=== PATIENT | female | born 1970 | race Caucasian/White ===

== ENCOUNTER 2020-04-06 11:37 | Emergency (ER) | payer OTHER, SELFPAY ==
[2020-04-06 11:39] VITALS: BP 161/105; PULSE 67; RESP 24; TEMP 36.7; O2SAT 95; BMI 37.8
--- NOTE | 2020-04-06 11:51 | ECG_ITS ---
APPROVED REPORT Exam: Resting ECG HR:66 bpm ECG Measurements Heart Rate 66 AXES NE 138 P 36 QRSd 84 QRS 0 QT 410 T -70 QTc 429 Conclusion Normal sinus rhythm Left ventricular hypertrophy with repolarization abnormality Abnormal ECG Electronically signed by : Bartolo Zhao, 04/06/2020 22:04:15
--- NOTE | 2020-04-06 12:00 | HMH.EDGENADL ---
ED Disposition Clinical Impression: Viral illness Disposition: Home, Self-Care Condition on Discharge: Good Referrals: Konrad Jo [Primary Care Provider] - 3 days - Critical Care Critical Care Time: No Attestation: On , the high probability of a clinically significant, sudden or life threatening deterioration of the following system(s) required my full and direct attention, intervention and personal management. The time I documented below is in addition to time spent performing reported procedures but includes the following listed in this critical care notation. Medical Decision Making - Jorge Luis Inquiry Pt receiving controlled substance: No Vital Signs: 04/06/20 11:39 04/06/20 12:44 04/06/20 14:03 Temperature 98.0 F Temperature Source Oral Pulse Rate [Right Radial] 67 63 56 L Respiratory Rate 24 16 Blood Pressure [Right Arm] 161/105 H 151/93 H 129/70 Blood Pressure Mean [Right Arm] 123 112 89 Blood Pressure Source [Right Arm] Automatic Cuff Automatic Cuff Automatic Cuff Blood Pressure Position [Right Arm] Sitting Sitting Sitting 02 Sat by Pulse Oximetry 95 96 96 Oxygen Delivery Method Room Air Room Air Room Air 04/06/20 14:35 Temperature Temperature Source Pulse Rate [Right Radial] 60 Respiratory Rate 18 Blood Pressure [Right Arm] 143/76 H Blood Pressure Mean [Right Arm] 98 Blood Pressure Source [Right Arm] Blood Pressure Position [Right Arm] 02 Sat by Pulse Oximetry 94 L Oxygen Delivery Method - Lab Data Lab Results 04/06/20 11:54: WBC 6.2, RBC 4.79, Hgb 13.7, Hct 42.1, MCV 88.0, MCH 28.7, MCHC 32.6, RDW 14.0, Plt Count 281, MPV 7.5, Neut % (Auto) 62.0, Lymph % (Auto) 30.5, Rankin % (Auto) 6.4, Eos % (Auto) 0.5, Baso % (Auto) 0.7, Neut # (Auto) 3.8, Lymph # (Auto) 1.9, Rankin # (Auto) 0.4, Eos # (Auto) 0.0, Baso # (Auto) 0.0 04/06/20 11:54: Sodium 139, Potassium 3.7, Chloride 107, Carbon Dioxide 23, Anion Gap 12.7, BUN 11, Creatinine 0.70, Estimated Creat Clear 171, Estimated GFR 89, Est GFR ( Amer) 107, Glucose 131 H, Calcium 9.3, Total Bilirubin 0.4, AST 55 H, ALT 58, Alkaline Phosphatase 95, Total Protein 7.4, Albumin 4.1, Globulin 3.3 H, Albumin/Globulin Ratio 1.2 04/06/20 11:54: Lactate 1.5 Result diagrams: 04/06/20 11:54 04/06/20 11:54 Orders (Tests/Meds): ED MEDICATIONS Generic Name Dose Route Start Last Admin Trade Name Freq PRN Reason Stop Dose Admin Sodium Chloride 1,000 mls @ 250 mls/hr 04/06/20 12:15 04/06/20 12:15 Sod Chlor 0.9% 1000ml Bag IV 05/06/20 12:14 250 mls/hr .Q4H VAL Administration ORDERS Category Date Time Status CXR --portable [XR chest portable] Stat Exams 04/06/20 12:09 Taken Covid-19 Nasal PCR ([facility]) Routine Lab 04/06/20 12:18 Received Trop I [Troponin I] Stat Lab 04/06/20 14:29 Ordered Urinalysis and Microscopic Stat Lab 04/06/20 12:06 Ordered Blood Culture Stat Micro 04/06/20 11:54 Received - Radiology Data #1 Image(s): Chest Image Reviewed: Yes I reviewed the patient's radiology image Preliminary Findings: Normal/NAD Medical Decision Narrative: 50yo F recently tested positive for Covid presents the emergency department secondary to feeling worse. Patient appears acutely ill. Her initial blood pressure is elevated but without intervention is trended to appropriate levels. Her physical exam is otherwise unremarkable. She is in no acute distress. Her O2 sat is 94 to 100% on room air. CBC, CMP are unremarkable. Troponin has been added on. Chest x-ray unremarkable. Discussed monoclonal antibody infusion if coronavirus test is positive. Discussed 81 mg p.o. aspirin daily with the patient as well. General Adult HPI - General Stated complaint: was covid positive, cough, SOB Time Seen by Provider: 04/06/20 12:00 Source of Information: Patient, Spouse - History of Present Illness HPI narrative: 50yo F with past medical history significant hypothyroidism presents the emergency department seconda
--- NOTE | 2020-04-06 12:09 | XR_ITS ---
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 Patchy peripheral infiltrate is present in the left lower lobe and possibly in the right lower lung zone medially No acute bony abnormalities. IMPRESSION: Patchy left lower lobe pneumonia with atelectasis or infiltrate in the right lung base medially Dictated by: Neal Khalil MD 04/06/2020 14:33 Neal Khalil MD in [place] 04/06/2020 14:33
[2020-04-06 12:24] LABS: Basophils % 0.7 % (0.1-2.0); Eosinophils % 0.5 % (0.1-12.0); Hematocrit 42.1 % (37.0-47.0); Hemoglobin 13.7 g/dL (12.2-16.2); Lymphocytes # 1.9 K/mm3 (0.7-4.5); Lymphocytes % 30.5 % (10-50); Mean Corpuscular HGB Conc 32.6 g/dL (31.8-35.4); Mean Corpuscular Hemoglobin 28.7 pg (27.0-31.2); Mean Platelet Volume 7.5 fl (7.4-10.4); Monocytes # 0.4 K/mm3 (0.1-1.0); Monocytes % 6.4 % (1.7-9.3); Neutrophils # 3.8 K/mm3 (1.8-7.8); Platelet Count 281 K/mm3 (142-424); Red Blood Count 4.79 M/mm3 (4.20-5.40); White Blood Count 6.2 K/mm3 (4.8-10.8)
[2020-04-06 12:31] LABS: Alanine Aminotransferase 58 U/L (12-78); Albumin Level 4.1 g/dl (3.5-5.0); Albumin/Globulin Ratio 1.2 (1.1-1.8); Alkaline Phosphatase 95 U/L (38-126); Anion Gap 12.7 mEq/L (5-15); Aspartate Amino Transferase 55 U/L (14-36); Bilirubin,Total 0.4 mg/dl (0.2-1.3); Blood Urea Nitrogen 11 mg/dl (7-17); Calcium 9.3 mg/dl (8.4-10.2); Carbon Dioxide 23 mmol/L (22.0-30.0); Chloride 107 mmol/L (98-107); Creatinine Clearance Estimated 171 mL/min (50-200); Estimated Glomerular Filt Rate 89 ml/min (>60); GFR (African American) 107 ML/MIN (>60); Globulin 3.3 g/dL (1.3-3.2); Glucose 131 mg/dl (74-100); Potassium 3.7 mmoL/L (3.5-5.1); Sodium 139 mmol/L (136-145); Total Protein,Serum 7.4 g/dl (6.3-8.2)
[2020-04-06 12:44] VITALS: BP 151/93; PULSE 63; O2SAT 96
[2020-04-06 13:46] LABS: Lactic Acid 1.5 mmol/L (0.7-2.1)
[2020-04-06 14:03] VITALS: BP 129/70; PULSE 56; RESP 16; O2SAT 96
--- NOTE | 2020-04-06 14:24 | PC.NURSE ---
per lab pt covid swab has approx 113 minutes left running
[2020-04-06 14:35] VITALS: BP 143/76; PULSE 60; RESP 18; O2SAT 94
--- NOTE | 2020-04-06 14:50 | CT_ITS ---
PROCEDURE: CT ANGIO CHEST CLINCIAL INDICATION: covid, sob COMPARISON: CR XR CHEST PORTABLE from 04/06/2020 TECHNIQUE: IV Contrast: 70ML Isovue 370 Axial images obtained with sagittal and coronal reformats. All CT scans at the facility use one or more dose reduction, viz: automated exposure control, ma/kV adjustment per patient size (including targeted exams where dose is matched to indication, i.e. head), or iterative reconstruction technique. FINDINGS: HEART AND MEDIASTINAL STRUCTURES: No evidence of pulmonary embolus, aortic aneurysm, or aortic dissection. LUNGS AND PLEURAL SPACES: There are multifocal small areas of infiltrate both central and peripheral some of which demonstrate ground-glass infiltrate and some more dense areas of consolidation. No effusions. There are some atelectatic changes in the lung bases. The small parenchymal opacities could very well obscure underlying pulmonary nodules. BONY STRUCTURES: No acute bony abnormalities apparent. UPPER ABDOMEN: There is a small hiatal hernia. ADDITIONAL FINDINGS: No other significant abnormalities. IMPRESSION: 1. No evidence of pulmonary embolus. 2. Multifocal areas of infiltrate are present representing commonly reported imaging features of Covid19 pneumonia . Other processes such is influenza pneumonia and organizing pneumonia, drug toxicity, connective tissue disease, and pulmonary hemorrhage can cause a similar imaging pattern. Dictated by: Neal Khalil MD 04/06/2020 15:56 Neal Khalil MD in [place] 04/06/2020 15:56
[2020-04-06 15:02] LABS: Troponin I < 0.01 ng/ml (0.00-0.034)
--- NOTE | 2020-04-06 15:25 | PC.NURSE ---
pt to CT
[2020-04-06 16:00] VITALS: BP 133/68; PULSE 60; O2SAT 94
[2020-04-06 16:59] VITALS: BP 144/79; PULSE 70; RESP 22; TEMP 36.7; O2SAT 96
== END 2020-04-06 16:59 | disposition home or self-care (01) ==
PROVIDERS: Emergency Provider Family Medicine; PCP Internal Medicine
DX: U07.1 COVID-19 (principal); J12.82 Pneumonia due to coronavirus disease 2019; E03.9 Hypothyroidism, unspecified; Z87.891 Personal history of nicotine dependence
CPT/HCPCS: 71045; 71275; 80053; 83605; 84484; 85025; 87040; 93005; 96365; 99284; Q9967; U0003

== ENCOUNTER → 2020-04-07 10:56 | Outpatient (CLI) | payer OTHER, SELFPAY ==
[2020-04-07] VITALS (7 sets, daily range): BP systolic 134–146; BP diastolic 80–89; PULSE 55–63; RESP 8–18; TEMP 36.6–36.7; O2SAT 96–98
== END ==
PROVIDERS: PCP Internal Medicine; Visit Provider Family Medicine
DX: U07.1 COVID-19 (principal)
CPT/HCPCS: 96365

== ENCOUNTER → 2021-03-23 08:02 | Outpatient (CLI) | payer OTHER, SELFPAY ==
--- NOTE | 2021-03-23 08:11 | MM_ITS ---
PROCEDURE INFORMATION: Exam: MG Bilateral Screening 3D Mammography Exam date and time: 03/23/2021 8:11 AM Age: 51 years old Clinical indication: Encounter for screening mammogram for malignant neoplasm of breast . Family history of breast carcinoma. TECHNIQUE: Imaging protocol: Bilateral Screening tomosynthesis and 2D mammography including computer-aided detection (CAD) when performed. COMPARISON: No relevant prior studies available. FINDINGS: MAMMOGRAPHY: Breast composition: There are scattered areas of fibroglandular density. Mass: No suspicious masses. Architectural distortion: No suspicious distortion. Calcifications: No suspicious calcifications. Asymmetric density: None. Skin thickening: None. Axillary adenopathy: None. IMPRESSION: No mammographic evidence of malignancy. Annual screening is recommended unless otherwise clinically indicated. Of note, patient reports having prior mammograms. Every attempt should be made to obtain prior mammograms for comparison. If/when these prior exams become available for comparison, an addendum will be made, if necessary. ASSESSMENT: BI-RADS Category 1: Negative
== END ==
PROVIDERS: PCP Internal Medicine; Visit Provider Internal Medicine
DX: Z12.31 Encounter for screening mammogram for malignant neoplasm of breast (principal)
CPT/HCPCS: 77063; 77067

== ENCOUNTER 2024-10-02 08:19 | Outpatient (CLI) | payer BC, SELFPAY ==
--- OUTSIDE RECORDS SUMMARY | 2024-08-13 08:45 | XMS_ITS | Encounter Summary ---
Author Organization Healthcare Address [address] [place] [address] Care Team Providers Care Pack Room Operator Name Role Phone Stanley Ugalde DDS Unavailable [phone] Krista Moreira Unavailable Unavail able Konrad Jo MD Primary Care Provider [phone] Reason for Referral * Other Medical (Routine) - Pending Review Specialty Diagnoses / Procedures Referred By Daniel t Referred To Contact Diagnoses Tricompartment osteoarthritis of left knee Procedures Injection - Large Joint: L knee Esther Dalton MD [address] [place] [address] Phone: tel: fax: Referral ID Status Reason Start Date Expiration Date V isits Requested Visits Authorized [id number] Pending Review 08/13/2024 02/12/2026 1 1 Reason for Visit * Reason Comments Pain Injections Encounter Details Date Type Department Care Team (Latest Contact Info) Description 08/13/2024 8:45 AM EDT Procedure Visit [facility] [address] [place] [address], [address] [place] [address] Esther Dalton MD [address] [place] [address] Tricompartment osteoarthritis of left knee (Primary Dx); Knee effusion, left; Class 3 severe obesity due to excess calories with serious comorbidity and body mass index (BMI) of 40.0 to 44.9 in adult Social History Tobacco Use Types Packs/Day Years Used Date Smoking Tobacco: Former Cigarettes 1.5 10 Smokeless Tobacco: Never Tobacco Cessation:Counseling Given: Not Answered Alcohol Use Standard Drinks/Week Comments Not Currently 0 (1 standard drink = 0.6 oz pur e alcohol) PHQ-2 Answer Date Recorded Patient Health Questionnaire-2 Score 0 11/29/2023 Comments Unknown Sex and Gender Information Value Date Recorded Sex Assigned at Not on file Legal Sex Female 7:51 PM EDT Gender Identity Not on file Sexual Orientation Not on file documented as of this encounter Last Filed Vital Signs Vital Sign Reading Time Taken Comments Blood Pressure 131/79 08/13/2024 9:03 AM EDT Pulse - - Temperature - - Respiratory Rate - - Oxygen Saturation - - Inhaled Oxygen Concentration - - Weight 113 kg (249 lb) 08/13/2024 9:03 AM EDT Height 167.6 cm (5' 6 ) 08/13/2024 9:03 AM EDT Body Mass Index 40.19 08/13/2024 9:03 AM EDT documented in this encounter Miscellaneous Notes * Progress Notes - Esther Dalton MD - 08/13/2024 8:45 AM EDTAssociated Order(s): Injection - Large Joint: L knee Post-Procedure Diagnose(s): Tricompartment osteoarthritis of left knee Clinic Note Encounter Date: 08/13/2024 Subjective: Chief Complaint: L knee pain History of Present Illness: 54 year old female with worsening L knee pain and swelling. She got great relief from her last steroid injection which was performed in November and really did well up until the last several weeks andsignificantly worsened with popping and catching since then. She has last weekend. She has also developed swelling. She denies any specific injury. She feels like getting started on antidepressant also significantly helped her pain as she was able to exercise more. Problem List has Acute non-recurrent maxillary sinusitis and Class III obesity with body mass index (BMI) of 40.0 or higher ([facility]) on their problem list. Medications Patient's Medications New Prescriptions No medications on file Previous Medications CITALOPRAM (CELEXA) 40 MG TABLET Take 1 tablet (40 mg) by mouth 1 (one) time each day. DESVENLAFAXINE (PRISTIQ) 50 MG 24 HR TABLET take 1 tablet by mouth every morning as directed DICLOFENAC (VOLTAREN) 1 % TOPICAL GEL Place on the skin 2 (two) times a day. Apply as directed to left knee DICLOFENAC SODIUM (VOLTAREN XR) 100 MG 24 HR TABLET Take 1 tablet (100 mg) by mouth 1 (one) time each day. LEVOTHYROXINE (SYNTHROID, LEVOXYL) 125 MCG TABLET Take 1 tablet (125 mcg) by mouth 1 (one) time each day. LISINOPRIL 5 MG TABLET Take 1 tablet by mouth daily. METHYLPREDNISOLONE (MEDROL DOSPAK) 4 MG TABLETS Take as directed. OMEPRAZOLE (PRILOSEC) [address] CAPSULE Take 1 capsule (40 mg) by mouth 1 (one) time each day. TRAZODONE (DESYREL) 150 MG TABLET Take 1 tablet (150 mg) by mouth every night. Modified Medications No medications on file Discontinued Medications No medications on file Surgical History Surgical History[1] Allergies Allergies[2] Objective: Visit Vitals BP 131/79 Ht 1.676 m (5' 6 ) Wt 113 kg (249 lb) BMI 40.19 kg/m?? Smoking Status Former BSA 2.29 m?? GEN: Alert, cooperative, in no acute distress MSK: L knee: small effusion. No erythema, ecchymosis or warmth. Imaging: I personally reviewed previous XR from 10/21/23 which shows moderate arthritis. Assessment and Plan: Diagnosis Plan 1. Tricompartment osteoarthritis of left knee 2. Knee effusion, left 3. Class 3 severe obesity due to excess calories with serious comorbidity and body mass index (BMI)of 40.0 to 44.9 in adult Orders Placed This Encounter Injection - Large Joint Follow up in about 6 weeks (around 09/24/2024). 54-year-old female 54-year-old female presents with flare of left knee primary osteoarthritis with knee effusion complicated by obesity with BMI 40. She ultimately elected to proceed with USG L knee CSI today. Will schedule for 6-8 weeks for HSIEH injection and if doing well with this steroid she willpush it back further. Continue exercising and working on weight loss to help with symptom management and be surgical candidate for TKA in future with BMI <40. Continue with swimming and aqua exercises but stay out of pool for next 48 hours to reduce risk of infection. 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 See procedure note. Post-injection care instructions were provided. Patient ID: Elizabeth Ely is a 54 y.o. female. Encounter Diagnoses Name Primary? Tricompartment osteoarthritis of left knee Yes Knee effusion, left Class 3 severe obesity due to excess calories with serious comorbidity and body mass index (BMI) of40.0 to 44.9 in adult Injection - Large Joint: L knee Indications: pain Details: 25 G needle, ultrasound-guided superolateral approach Medications: 50 mg lidocaine 1 %; 2 mL ropivacaine 5 MG/ML; 40 mg Kenalog-40 40 MG/ML Aspirate: sent for lab analysis Outcome: tolerated well, no immediate complications US Guided Procedure Note: Indication: Knee pain Procedure: Sonographically guided left knee corticosteroid injection Informed Consent: Following denial of allergy and review of potential side effects and complications including, but not limited to, infection, allergic reaction, local tissue breakdown, systemic effects of corticosteroids, elevation of blood glucose, injury to soft tissue and/or nerves and seizure,the patient indicated understanding and agreed to proceed. Procedural pause conducted to verify: correct patient identity, procedure to be performed and, as applicable, correct side and site, correct patient position, availability of any special equipment orother special requirements. Justification for use of ultrasound guidance: The use of direct sonographic visualization of the needle (rather than a non-guided injection) was required to ensure accurate injection placement for diagnostic specificity, to maximize clinical efficacy and for safety purposes to minimize risk of bleeding or injury to nearby neurovascular structures. Technique: The procedure was carried out under sterile technique utilizing a sterile ultrasound transducer cover and sterile ultrasound gel. Pre-procedural scanning was performed to determine optimalneedle approach for the procedure. The patient was prepped and draped in the usual sterile fashion. Patient position: supine Approach: in plane Local anesthesia: 5 mL 1% Lidocaine Aspiration/Injection: Live sonographic guidance with a 12-5 mHz linear array transducer was used throughout the procedure. A 25g 2 inch needle was used for local anesthesia and was guided into the supra-patellar recess. After reconfirmation of needle placement 2cc 0.5% Ropivicaine and 1cc 40mg/mL Kenalog was guided into the supra-patellar recess. Post-Procedure Instructions: The patient tolerated the procedure well without complication and was discharged in good condition after a short observation period. The patient was instructed to avoid submerging the procedure site in water for 48-72 hours. The patient was instructed to contact me withany questions pertaining to the procedure and to inform me of the results of the procedure in approximately 7-10 days, as needed. Questions regarding general management should be directed to the patient's referring provider and the patient should keep all previously scheduled follow up appointments. Multiple marino images were saved. Impression: Successful sonographically-guided left knee injection. Procedure, treatment alternatives, risks and benefits explained, specific risks discussed. Consent was given by the patient. Immediately prior to procedure a time out was called to verify the correctpatient, procedure, equipment, network support and site/side marked as required. Patient was prepped and draped in the usual sterile fashion. Electronically Signed by: Esther Dalton MD - 08/13/2024 - 10:10 AM [1] Past Surgical History: Procedure Laterality Date HYSTERECTOMY ROOT CANAL WISDOM TOOTH EXTRACTION [2] No Known Allergies documented in this encounter Plan of Treatment Not on file documented as of this encounter Procedures Procedure Name Priority Date/Time Associated Diagnosis Comments WA ARTHROCENTESIS ASPIR&/INJ MAJOR JT/BURSA W/US Routine 08/13/2024 8:45 AM EDT Tricompartment osteoarthritis of left knee documented in this encounter Results * WA ARTHROCENTESIS ASPIR&/INJ MAJOR JT/BURSA W/US (08/13/2024 8:45 AM EDT) Narrative Esther Dalton MD - 08/13/2024 8:45 AM EDT Esther Dalton MD 08/13/2024 10:13 AM Injection - Large Joint: L knee Indications: pain Details: 25 G needle, ultrasound-guided superolateral approach Medications: 50 mg lidocaine 1 %; 2 mL ropivacaine 5 MG/ML; 40 mg Kenalog-40 40 MG/ML Aspirate: sent for lab analysis Outcome: tolerated well, no immediate complications US Guided Procedure Note: Indication: Knee pain Procedure: Sonographically guided left knee corticosteroid injection Informed Consent: Following denial of allergy and review of potential side effects and complications including, but not limited to, infection, allergic reaction, local tissue breakdown, systemic effects of corticosteroids, elevation of blood glucose, injury to soft tissue and/or nerves and seizure, the patient indicated understanding and agreed to proceed. Procedural pause conducted to verify: correct patient identity, procedure to be performed and, as applicable, correct side and site, correct patient position, availability of any special equipment or other special requirements. Justification for use of ultrasound guidance: The use of direct sonographic visualization of the needle (rather than a non-guided injection) was required to ensure accurate injection placement for diagnostic specificity, to maximize clinical efficacy and for safety purposes to minimize risk of bleeding or injury to nearby neurovascular structures. Technique: The procedure was carried out under sterile technique utilizing a sterile ultrasound transducer cover and sterile ultrasound gel. Pre-procedural scanning was performed to determine optimal needle approach for the procedure. The patient was prepped and draped in the usual sterile fashion. Patient position: supine Approach: in plane Local anesthesia: 5 mL 1% Lidocaine Aspiration/Injection: Live sonographic guidance with a 12-5 mHz linear array transducer was used throughout the procedure. A 25g 2 inch needle was used for local anesthesia and was guided into the supra-patellar recess. After reconfirmation of needle placement 2cc 0.5% Ropivicaine and 1cc 40mg/mL Kenalog was guided into the supra-patellar recess. Post-Procedure Instructions: The patient tolerated the procedure well without complication and was discharged in good condition after a short observation period. The patient was instructed to avoid submerging the procedure site in water for 48-72 hours. The patient was instructed to contact me with any questions pertaining to the procedure and to inform me of the results of the procedure in approximately 7-10 days, as needed. Questions regarding general management should be directed to the patient's referring provider and the patient should keep all previously scheduled follow up appointments. Multiple marino images were saved. Impression: Successful sonographically-guided left knee injection. Procedure, treatment alternatives, risks and benefits explained, specific risks discussed. Consent was given by the patient. Immediately prior to procedure a time out was called to verify the correct patient, procedure, equipment, network support and site/side marked as required. Patient was prepped and draped in the usual sterile fashion. us sEther Dalton MD IN CLINIC/BEDSIDE ORDERABLE S Final Result documented in this encounter Visit Diagnoses Diagnosis Tricompartment osteoarthritis of left knee- Primary Knee effusion, left Effusion of lower leg joint Class 3 severe obesity due to excess calories with serious comorbidity and body mass index (BMI) of 40.0 to 44.9 in adult documented in this encounter Administered Medications Inactive Administered Medications - up to 3 most recent administrations Medication Order MAR Action Action Date Dose Rate Site lidocaine (Xylocaine) 1 % injection 50 mg 50 mg, Intra-articular, Once PRN Procedure, 1 dose, Starting on Sun08/13/24 at 0845, Until Sun08/13/24 at 0845, RoutineIndications:Tricompartment osteoarthritis of left knee Given 08/13/2024 8:45 AM EDT 50 mg ropivacaine (Naropin) injection 2 mL 2 mL, Injection, Once PRN Procedure, 1 dose, Starting on Sun08/13/24 at 0845, Until Sun08/13/24 at 0845, RoutineIndications:Tricompartment osteoarthritis of left knee Given 08/13/2024 8:45 AM EDT 2 mL triamcinolone acetonide (Kenalog-40) injection 40 mg 40 mg, Intra-articular, Once PRN Procedure, 1 dose, Starting on Sun08/13/24 at 0845, Until Sun08/13/24 at 0845, RoutineIndications:Tricompartment osteoarthritis of left knee Given 08/13/2024 8:45 AM EDT 40 mg documented in this encounter Additional Health Concerns Assessment Noted Time A fall risk assessment has been complete d for the patient 08/13/2024 9:03 AM EDT A Body Mass Index follow-up plan has been documented for the patient 08/13/2024 10:13 AM EDT documented as of this encounter Care Teams Pack Room Operator Relationship Specialty Start Date End Date Konrad Jo MD [address] [place] [address] PCP - General 10/21/23 Stanley Ugalde, ROSEMARIE [address] [facility] [address] [place] [address] Dentist Dentist 06/14/22 Krista Moreira [facility] 06/14/22 documented as of this encounter
--- OUTSIDE RECORDS SUMMARY | 2024-10-01 08:30 | XMS_ITS | Encounter Summary ---
Author Organization Healthcare Address [address] [place] [address] Care Team Providers Care Sed Special Education Teacher Name Role Phone Stanley Ugalde DDS Unavailable [phone] Krista Moreira Unavailable Unavail Konrad Camacho MD Primary Care Provider [phone]- [phone] Reason for Visit * Reason Comments Pain Injections * Other Medical (Routine) - Closed Specialty Diagnoses / Procedures Referred By Contac t Referred To Contact Sports Medicine Diagnoses Tricompartment osteoarthritis of left knee Procedures Large Joint Injection Esther Dalton MD [address] [place] [address] Phone: tel: fax: Referral ID Status Reason Start Date Expiration Date Visits Re quested Visits Authorized [id number] Closed 08/13/2024 02/12/2026 1 1 Encounter Details Date Type Department Care Team (Latest Contact Info) Description 10/01/2024 8:30 AM EDT Procedure Visit [facility] Orthopaedic Surgery & Sports Medicine [address] [facility], [address] [place] [address] Esther Dalton MD [address] [facility] [address] [place] [address] Tricompartment osteoarthritis of left knee Social History Tobacco Use Types Packs/Day Years [...] Sign Reading Time Taken Comments Blood Pressure 151/80 10/01/2024 8:27 AM EDT Pulse - - Temperature - - Respiratory Rate - - Oxygen Saturation - - Inhaled Oxygen Concentration - - Weight 116 kg (256 lb) 10/01/2024 8:27 AM EDT Height 167.6 cm (5' 6 ) 10/01/2024 8:27 AM EDT Body Mass Index 41.32 10/01/2024 8:27 AM EDT documented in this encounter Plan of Treatment Not on file documented as of this encounter Visit Diagnoses Diagnosis Tricompartment osteoarthritis of left knee documented in this encounter Additional Health Concerns Assessment Noted Time A fall risk assessment has been complete d for the patient 10/01/2024 8:31 AM EDT A Body Mass Index follow-up plan has been documented for the patient 08/13/2024 10:13 AM EDT documented as of this encounter Care Teams Sed Special Education Teacher Relationship Specialty Start Date End Date Konrad Jo MD [address] [place] [address] PCP - General 10/21/23 Stanley Ugalde DDS [id number] [place] [address] Dentist Dentist 06/14/22 Krista Moreira Dentisamber 06/14/22 documented as of this encounter
--- NOTE | 2024-10-02 08:23 | XR_ITS ---
FINAL REPORT TECHNIQUE: Bone densitometry calculations of the lumbar spine and left hip were obtained. CLINICAL HISTORY: SCREENING FINDINGS: Using L1-4, the bone mineral density of the spine is 1.139 g/cm2, corresponding to T-score of 0.8. Using the left hip, the bone mineral density of the femoral neck is 0.908 g/cm2, corresponding to a T-score of -0.3. Using the right hip, the bone mineral density of the femoral neck is 0.976 g/cm2, corresponding to a T-score of 0.3. NOTE: T-score: Standard deviation compared with peak bone mass of young adult mean. *Following the recommendations of the International Society of Bone densitometry, classification of hip BMD is based on the lower of two T-scores; total hip or femoral neck. IMPRESSION: Normal bone mineral density of the lumbar spine and both hips. FRAX was not reported because all of the T-scores are at or above -1.0. Reviewed, Interpreted and Dictated by Steffen Munoz MD Transcribed by Olga Viera Authenticated and [facility]
--- NOTE | 2024-10-02 08:23 | MM_ITS ---
PROCEDURE INFORMATION: Exam: MG Bilateral Screening 3D Mammography Exam date and time: 10/02/2024 8:34 AM Age: 54 years old Clinical indication: Screening examination. Her mother had breast cancer. TECHNIQUE: Imaging protocol: Bilateral Screening tomosynthesis and 2D mammography including computer-aided detection (CAD) when performed. COMPARISON: 1. MG MM DIG SCREENING MAMM BI W/CAD 03/23/2021 8:04 AM 2. MG MM SCREENING MAMMOGRAM 02/23/2015 1:49 PM 3. MG MM SCREENING MAMMOGRAM 02/12/2014 12:17 PM 4. MG MM SCREENING MAMMOGRAM 02/06/2013 3:53 PM FINDINGS: MAMMOGRAPHY: Breast composition: There are scattered areas of fibroglandular density. Mass: None. Architectural distortion: None. Calcifications: No suspicious calcifications. Asymmetric density: None. Skin thickening: None. Axillary adenopathy: None. IMPRESSION: No mammographic evidence of malignancy. Annual screening is recommended unless otherwise clinically indicated. ASSESSMENT: BI-RADS Category 1: Negative.
--- OUTSIDE RECORDS SUMMARY | 2024-10-02 08:29 | XMS_ITS | Encounter Summary ---
Author Organization Healthcare Address [address] [place] [address] Care Team Providers Care Evidence Specialist Name Role Phone Stanley Ugalde DDS Unavailable [phone] Krista Moreira Unavailable Unavail able Konrad Jo MD Primary Care Provider [phone] Encounter Details Date Type Department Care Team (Latest Contact Info) Description 08/13/2024 Travel Social History Tobacco Use Types Packs/Day Years Used Date Smoking Tobacco: Former Cigarettes 1.5 10 Smokeless Tobacco: Never Alcohol Use Standard Drinks/Week Comments Not Currently 0 (1 standard drink = 0.6 oz pur e alcohol) PHQ-2 Answer Date Recorded Patient Health Questionnaire-2 Score 0 11/29/2023 Comments Unknown Sex and Gender Information Value Date Recorded Sex Assigned at Not on file Legal Sex Female 7:51 PM EDT Gender Identity Not on file Sexual Orientation Not on file documented as of this encounter Plan of Treatment Not on file documented as of this encounter Visit Diagnoses Not on filedocumented in this encounter Additional Health Concerns Assessment Noted Time A fall risk assessment has been complete d for the patient 08/13/2024 9:03 AM EDT A Body Mass Index follow-up plan has been documented for the patient 08/13/2024 10:13 AM EDT documented as of this encounter Care Teams Evidence Specialist Relationship Specialty Start Date End Date Konrad Jo MD [address] [place] [address] PCP - General 10/21/23 Stanley Ugalde DDS [address] [facility] [place] [address] Dentist Dentist 06/14/22 Krista Moreira Dentist 06/14/22 documented as of this encounter
--- OUTSIDE RECORDS SUMMARY | 2024-10-02 08:29 | XMS_ITS | Encounter Summary ---
Author Organization Healthcare Address [address] [place] [address] Care Team Providers Care Underground Distribution Engineer Name Role Phone Stanley Ugalde DDS Unavailable [phone] Krista Moreira Unavailable Unavail Konrad Camacho MD Primary Care Provider [phone] Reason for Visit * Reason Onset Date Comments HCN Clinical Concern/Question 08/11/2024 Encounter Details Date Type Department Care Team (Late st Contact Info) Description 08/11/2024 Telephone [facility] Orthopaedic Surgery & Sports Medicine [address] [facility], [address] [place] [address] Immanuel West MD [address] [facility] [address] [place] [address] HCN Clinical Concern/Question Social History Tobacco Use Types Packs/Day Years [...] on file documented as of this encounter Miscellaneous Notes * Telephone Encounter - Phillip Cummings - 08/11/2024 2:30 PM EDT Spoke to the patient, scheduled * Telephone Encounter - Viviane Fuller - 08/11/2024 8:12 AM EDT Clinical Concern/Question Reason for Call: Dr West/Patient called to schedule her next procedure for steroid and gel injection for left knee pain. Please call to advise, thanks Best contact number: [phone] (home) Optimal time of day to reach caller: ANYTIME Additional comments/information from caller: Nonetd Note: Please do not reply to this message. Follow-up communication and further actions as a result of this message need to be communicated with the patient directly, if the patient is not active onMyChart. If the patient is active on MyChart, they will receive notification of the communication/outcome via [email or web address]. documented in this encounter Plan of Treatment Not on file documented as of this encounter Visit Diagnoses Not on filedocumented in this encounter Additional Health Concerns Assessment Noted Time A fall risk assessment has been complete d for the patient 11/29/2023 3:07 PM EDT A Body Mass Index follow-up plan has been documented for the patient 12/08/2023 9:18 PM EDT documented as of this encounter Care Teams Underground Distribution Engineer Relationship Specialty Start Date End Date Konrad Jo MD [address] [place] [address] PCP - General 10/21/23 Stanley Ugalde DDS [address] [place] [address] Dentist Dentist 06/14/22 Krista Moreira Dentist 06/14/22 documented as of this encounter
--- OUTSIDE RECORDS SUMMARY | 2024-10-02 08:29 | XMS_ITS | Encounter Summary ---
Author Organization Healthcare Address [address] [place] [address] Care Team Providers Care Change Release Manager Name Role Phone Stanley Ugalde DDS Unavailable [phone] Krista Moreira Unavailable Unavail able Konrad Jo MD Primary Care Provider [phone] Encounter Details Date Type Department Care Team (Late st Contact Info) Description 08/13/2024 Orders Only External Location [address] [place] [address] Provider, External Social History Tobacco Use Types Packs/Day Years [...] Procedure Name Priority Date/Time Associated Diagnosis Comments POC ULTRASOUND 08/13/2024 documented in this encounter Results * POC Imaging (08/13/2024) Anatomical Region Laterality Modality Pelvis Other 08/13/2024 us External Provider IMG POINT OF CARE ULTRASOUND F inal Result documented in this encounter Visit Diagnoses Not on filedocumented in this encounter Additional Health Concerns Assessment Noted Time A fall risk assessment has been complete d for the patient 08/13/2024 9:03 AM EDT A Body Mass Index follow-up plan has been documented for the patient 08/13/2024 10:13 AM EDT documented as of this encounter Care Teams Change Release Manager Relationship Specialty Start Date End Date Konrad Jo MD [address] [place] [address] PCP - General 10/21/23 Stanley Ugalde DDS [address] [facility] [address] [place] [address] Dentist Dentist 06/14/22 Krista Moreira Dentist 06/14/22 documented as of this encounter
--- OUTSIDE RECORDS SUMMARY | 2024-10-02 08:30 | XMS_ITS | Encounter Summary ---
Author Organization Healthcare Address [address] [place] [address] Care Team Providers Care Stitch Cleaner Name Role Phone Stanley Ugalde DDS Unavailable [phone] Krista Moreira Unavailable Unavail able Konrad Jo MD Primary Care Provider [phone] Encounter Details Date Type Department Care Team (Late st Contact Info) Description 10/01/2024 Orders Only External Location [address] [place] [address] Provider, External Social History Tobacco Use Types [...] Priority Date/Time Associated Diagnosis Comments POC ULTRASOUND 10/01/2024 documented in this encounter Results * POC Imaging (10/01/2024) Anatomical Region Laterality Modality Pelvis Other 10/01/2024 us External Provider IMG POINT OF CARE [...] documented as of this encounter Care Teams Stitch Cleaner Relationship Specialty Start Date End Date Konrad Jo MD [address] [place] [address] PCP - General 10/21/23 Stanley Ugalde DDS [address] [facility] [address] [place] [address] Dentist Dentist 06/14/22 Krista Moreira Dentist 06/14/22 documented as of this encounter
--- OUTSIDE RECORDS SUMMARY | 2024-10-02 08:30 | XMS_ITS | Encounter Summary ---
Author Organization Healthcare Address [address] [place] [address] Care Team Providers Care Molding Manager Name Role Phone Stanley Ugalde DDS Unavailable [phone] Krista Moreira Unavailable Unavail able Konrad Jo MD Primary Care Provider [phone] Encounter Details Date Type Department Care Team (Latest Contact Info) Description 10/01/2024 Travel Social History Tobacco Use Types Packs/Day [...] documented as of this encounter Care Teams Molding Manager Relationship Specialty Start Date End Date Konrad Jo MD [address] [place] [address] PCP - General 10/21/23 Stanley Ugalde DDS [address] [facility] [place] [address] Dentist Dentist 06/14/22 Krista Moreira Dentist 06/14/22 documented as of this encounter
--- OUTSIDE RECORDS SUMMARY | 2024-10-02 08:30 | XMS_ITS | Encounter Summary ---
Author Organization Healthcare Address [address] [place] [address] Care Team Providers Care Church Supervisor Name Role Phone Stanley Ugalde DDS Unavailable Krista Moreira Unavailable Unavail able Konrad Jo MD Primary Care Provider [phone] Reason for Referral * Other Medical (Routine) - Closed Specialty Diagnoses / Procedures Referred By Daniel clark Referred To Contact Sports Medicine Diagnoses Tricompartment osteoarthritis of left knee Procedures Large Joint Injection Esther Dalton [facility] [address] [facility] [address] [place] [address] Phone: tel: fax: Referral ID Status Reason Start Date Expiration Date Visits Re quested Visits Authorized [id number] Closed 08/13/2024 02/12/2026 1 1 Encounter Details Date Type Department Care Team (Late st Contact Info) Description 08/13/2024 Orders Only [facility] [facility]opaedic [facility] & Sports Medicine [facility] [place] [address] Esther Dalton MD [address] [facility] [address] [place] [address] Tricompartment osteoarthritis of left knee (Primary Dx) Social History Tobacco Use Types Packs/Day Years [...] as of this encounter Plan of Treatment Scheduled Orders Name Type Priority Associated Diagnoses Orde r Schedule Large Joint Injection Procedures Routine Tricompartment osteoarthritis of left knee 1 Occurrences starting 08/13/2024 until 02/14/2026 documented as of this encounter Visit Diagnoses Diagnosis Tricompartment osteoarthritis of left knee- Primary documented in this encounter Additional Health Concerns Assessment Noted Time A fall risk assessment has been complete d for the patient 08/13/2024 9:03 AM EDT A Body Mass Index follow-up plan has been documented for the patient 08/13/2024 10:13 AM EDT documented as of this encounter Care Teams Church Supervisor Relationship Specialty Start Date End Date Konrad Jo MD [address] [place] [address] PCP - General 10/21/23 Stanley Ugalde DDS [id number] [place] [address] Dentist Dentist 06/14/22 Krista Moreira Dentisamber 06/14/22 documented as of this encounter
--- OUTSIDE RECORDS SUMMARY | 2024-10-02 08:30 | XMS_ITS | Clinical Summary ---
Author Organization Healthcare Address [address] [place] [address] Care Team Providers Care Publication Specialist Name Role Phone Stanley Ugalde DDS Unavailable [phone] Krista Moreira Unavailable Unavail able Konrad Jo MD Primary Care Provider [phone] Allergies No known active allergies Medications * This document contains information received from the source organization and may not represent a complete record from that organization. citalopram (CeleXA) 40 MG tablet Take 1 tablet (40 mg) by mouth 1 (one) time each day. 05/25/19 Active diclofenac sodium (Voltaren XR) 100 mg 24 hr tablet Take 1 tablet (100 mg) by mouth 1 (one) time each day. 05/25/19 23 Active levothyroxine (Synthroid, Levoxyl) 125 MCG tablet Take 1 tablet (125 mcg) by mouth 1 (one) time each day. 05/25/19 23 Active omeprazole (PriLOSEC) [address] capsule Take 1 capsule (40 mg) by mouth 1 (one) time each day. 05/25/19 23 Active traZODone (Desyrel) 150 MG tablet Take 1 tablet (150 mg) by mouth every night. 05/25/19 23 Active methylPREDNISolone (Medrol Dospak) 4 MG tablets Take as directed. 1 each 10/21/19 24 Active Additional Information Patient not taking.Reported on 10/01/2024 diclofenac (Voltaren) 1 % topical gelIndications:Tri compartment osteoarthritis of left knee Place on the skin 2 (two) times a day. Apply as directed to left knee 150 g 10/23/19 24 Active desvenlafaxine (Pristiq) 50 MG 24 hr tablet take 1 tablet by mouth every morning as directed 07/23/19 25 Active lisinopril 5 MG tablet Take 1 tablet by mouth daily. 07/23/19 25 Active liothyronine (Cytomel) 5 MCG tablet TAKE ONE TABLET BY MOUTH DAILY FOR low thyroid 09/23/19 25 Active Active Problems Problem Noted Date Diagnosed Date Class III obesity with body mass index (BMI) of 40.0 or higher 11/29/2023 Acute non-recurrent maxillary sinusitis 12/21/19 Assessment & Plan (12/20/2021 9:04 AM EDT): Augmentin as prescribed. Encounters Date Type Department Care Team Description 10/01/2024 8:30 AM EDT Procedure Visit [facility] Orthopaedic Surgery & Sports Medicine [address] , [address] [place] [address] Esther Dalton MD Tricompartment osteoarthritis of left knee 10/01/2024 Orders Only External Location [address] [place] [address] Provider, External 10/01/2024 Travel 08/13/2024 8:45 AM EDT Procedure Visit [facility] Orthopaedic Surgery & Sports Medicine [address] [facility], [address] [place] [address] Esther Dalton MD Tricompartment osteoarthritis of left knee (Primary Dx); Knee effusion, left; Class 3 severe obesity due to excess calories with serious comorbidity and body mass index (BMI) of 40.0 to 44.9 in adult 08/13/[address] [facility] Orthopaedic Surgery & Sports Medicine [address] , [address] [place] [address] Esther Dalton MD Tricompartment osteoarthritis of left knee (Primary Dx) 08/13/2024 Orders Only External Location [address] [place] [address] Provider, External 08/13/2024 Travel 08/11/[address] [facility] Orthopaedic Surgery & Sports Medicine [address] [facility], [address] [place] [address] Immanuel West MD HCN Clinical Concern/Question from Last 3 Months Immunizations Immunization Administration Dates Next Due MMR 07/20/1971 Family History Medical History Relation Name Comments defects Brother Edward Copeland Alcohol abuse Father Naun copeland Depression Father Naun copeland Heart disease Father Naun copeland Cancer Mother Brooke Delacruz Relation Name Status Comments Brother Edward Copeland Father Naun copeland Mother Brooke Delacruz Social History Tobacco Use Types Packs/Day Years [...] on file Sexual Orientation Not on file Last Filed Vital Signs Vital Sign Reading Time Taken Comments Blood Pressure 151/80 10/01/2024 8:27 AM EDT Pulse 62 10/21/2023 9:19 AM EDT Temperature 36.7 C (98 F) 10/21/2023 9:19 AM EDT Respiratory Rate 18 10/21/2023 9:19 AM EDT Oxygen Saturation 98% 10/21/2023 9:19 AM EDT Inhaled Oxygen Concentration - - Weight 116 kg (256 lb) 10/01/2024 8:27 AM EDT Height 167.6 cm (5' 6 ) 10/01/2024 8:27 AM EDT Body Mass Index 41.32 10/01/2024 8:27 AM EDT Plan of Treatment Health Maintenance Due Date Last Done Comments Dental Oral Exam 1970 Dental Prophylaxis 1970 Dental X-Ray: Bitewings 1970 Dental X-Ray: Full Mouth 1970 [facility]-HIV Screening 1970 [facility]-Hepatitis C Screening 1970 [facility]-Infant/Child/Adol SDOH Screenings 1970 [id number] Vaccine (#1) 1975 [facility]- SDOH Screenings 01/02/1988 [facility]-Adult SDOH Screenings 01/02/1988 [facility]-DTaP,Tdap,and Td Vaccines (1 - Tdap) 1989 [facility]-Hepatitis B Vaccines (1 of 3 - 19+ 3-dose series) 1989 CT Colonography 2015 Colonoscopy 2015 FIT-DNA 2015 FIT 2015 FOBT 2015 Sigmoidoscopy 2015 [facility]-Colorectal Cancer Screening 2015 [facility]-Breast Cancer Screening 01/02/2020 [facility]-Pneumococcal Vaccine: 50+ Years (1 of 1 - PCV) 01/02/2020 [facility]-Zoster Vaccines (1 of 2) 01/02/2020 [facility]-Influenza Vaccine (#1) 2024 [facility]-Depression Screening 11/28/2024 11/29/2023 [facility]-Cervical Cancer Screening Discontinued [facility]-HPV/Cotest Discontinued 12/14/1992 [facility]-Pap Smear Discontinued 12/14/1992 [facility]-Obesity Intervention Completed 025, 11/29/2023, 11/01/2023, Additional history exists HPV Vaccines Aged Out No longer eligi ble based on patient's age to complete this topic [facility]-HIB Vaccines Aged Out No longer e ligible based on patient's age to complete this topic [facility]-Hepatitis A Vaccines Aged Out No longer eligible based on patient's age to complete this topic [facility]-IPV Vaccines Aged Out No longer e ligible based on patient's age to complete this topic [facility]-Rotavirus Vaccines Aged Out No lo nger eligible based on patient's age to complete this topic Procedures Procedure Name Priority Date/Time Associated Diagnosis Comments POC ULTRASOUND 10/01/2024 DE ARTHROCENTESIS ASPIR&/INJ MAJOR JT/BURSA W/US Routine 08/13/2024 8:45 AM EDT Tricompartment osteoarthritis of left knee POC ULTRASOUND 08/13/2024 CYTO DATA CONVERSION Routine 12/14/1992 12:00 AM EDT from Last 3 Months or Most Recently Relevant to Health Maintenance Results * POC Imaging (10/01/2024) Only the most recent of2 resultswithin the time period is included. Anatomical Region Laterality Modality Pelvis Other 10/01/2024 us External Provider IMG POINT OF CARE ULTRASOUND F inal Result * DE ARTHROCENTESIS ASPIR&/INJ MAJOR JT/BURSA W/US (08/13/2024 8:45 [...] to verify the correct patient, procedure, equipment, direct support worker and site/side marked as required. Patient was prepped and draped in the usual sterile fashion. us Esther Dalton MD IN CLINIC/BEDSIDE ORDERABLE S Final Result * Cytology (12/14/1992 12:00 AM EDT) 12/14/1992 12/15/1992 Narrative [facility]QUEST - 12/17/1992 12:00 AM EDT [facility] MR #: [id number] [facility] ELIZ[address]ETH [place], [place] [address] 1970 (Age: 22) FW Collect Date: 12/14/1992 00:00 Receipt Date: 12/15/1992 00:00 Page 1 DEPARTMENT OF PATHOLOGY AND LABORATORY MEDICINE CYTOPATHOLOGY REPORT Email: [email or web address] * Converted Case * This report may not match the original report format ATTENDING MD/Practitioner: Francisco Luque MD Service: OB Location: Reported: 12/17/1992 00:00 Collected: 12/14/1992 00:00 INTERPRETATION CERVICAL SCRAPE/ENDOCERVICAL BRUSH WITHIN NORMAL LIMITS. SATISFACTORY FOR INTERPRETATION. Electronically Signed Out SAMANTHA Alba (ASCP) Ruma Benavidez MD Cervical cytology is a screening test primarily for squamous cancers and precursors and has associated false negative and positive results. New technologies such as liquid based sampling may decrease but will not eliminate all false negative results. Regular screening and follow-up of unexplained clinical signs and symptoms are recommended to minimize false negative results. Please see the ASCCP website (www.asccp.org) for followup recommendations. If HPV testing was requested, correlation with the results is suggested (please call Microbiology at [phone] for results). CLINICAL INFORMATION: Menstrual History: {Not Provided} Date of Last Menstrual Period: {Not Provided} SPECIMEN DESCRIPTION: A: CERVICAL/VAGINAL SMEAR, PAP ICD: F: {Not Entered} SNOMED CODES: 1; [id number] In cases where a pathologist has signed out the report, the service has been rendered in part by a resident. The signing pathologist has performed and is responsible for the reported pathologic evaluation. us Historical Provider LAB PATHOLOGY ORDERABLES Final Result [facility] from Last 3 Months or Most Recently Relevant to Health Maintenance Insurance [id number] [id number] ANTHEM Care Teams Publication Specialist Relationship Specialty Start Date End Date Konrad Jo MD [address] [place] [address] PCP - General 10/21/23 Stanley Ugalde DDS [address] [facility] [address] [place] [address] Dentist Dentist 06/14/22 Krista Moreira Dentisamber 06/14/22
== END 2024-10-02 23:59 | disposition home or self-care (01) ==
LOC: RAD 08:20
PROVIDERS: PCP Internal Medicine; Visit Provider Internal Medicine
DX: Z12.31 Encounter for screening mammogram for malignant neoplasm of breast (principal); R92.323 Mammographic fibroglandular density, bilateral breasts; Z78.0 Asymptomatic menopausal state; Z80.3 Family history of malignant neoplasm of breast
CPT/HCPCS: 77063; 77067; 77080